=== PATIENT | male | born 1955 | race American Indian/Alaskan Native ===

== ENCOUNTER 2018-12-23 00:56 | Emergency (ER) | payer MEDICAID ==
--- NOTE | 2018-12-23 03:34 | Emergency Department Report ---
ED Lower Extremity HPI - General Chief Complaint: Extremity Injury, Lower Stated Complaint: B LEG PAIN FOR 2 DAYS Time Seen by Provider: 12/23/18 02:54 Source: patient Mode of arrival: Ambulatory Limitations: No Limitations - History of Present Illness MD Complaint: knee injury -: Gradual, month(s) Injury: Knee: Right Severity: moderate Improves With: nothing Worsens With: movement, palpation Associated Symptoms: denies: snap/pop sensation, swelling, numbness, tingling, unable to bear weight, able to partially bear weight - Related Data Previous Rx's Medication Instructions Recorded Last Taken Type Meloxicam [Mobic] 15 mg PO DAILY #14 tablet 12/23/18 Unknown Rx Allergies Allergy/AdvReac Type Severity Reaction Status Date / Time Penicillins Allergy Hives Verified 12/23/18 00:59 ED Review of Systems ROS: Stated complaint: B LEG PAIN FOR 2 DAYS Other details as noted in HPI Comment: All other systems reviewed and negative ED Past Medical Hx - Past Medical History Previous Medical History?: Yes Hx Hypertension: Yes Hx HIV: Yes - Surgical History Past Surgical History?: Yes Additional Surgical History: Shunt placement - Social History Smoking Status: Current Every Day Smoker Substance Use Type: None - Medications Home Medications: Home Medications Medication Instructions Recorded Confirmed Last Taken Type Meloxicam [Mobic] 15 mg PO DAILY #14 tablet 12/23/18 Unknown Rx ED Physical Exam - General Limitations: No Limitations General appearance: alert, in no apparent distress - Head Head exam: Present: atraumatic, normocephalic - Eye Eye exam: Present: normal appearance - ENT ENT exam: Present: mucous membranes moist - Neck Neck exam: Present: normal inspection - Respiratory Respiratory exam: Present: normal lung sounds bilaterally. Absent: respiratory distress - Cardiovascular Cardiovascular Exam: Present: regular rate, normal rhythm. Absent: systolic murmur, diastolic murmur, rubs, gallop - GI/Abdominal GI/Abdominal exam: Present: soft, normal bowel sounds - Rectal Rectal exam: Present: deferred - Extremities Exam Extremities exam: Present: normal inspection - Expanded Lower Extremity Exam Right Knee exam: Present: tenderness (there is tenderness to palpation and some crepitus with range of motion.). Absent: abrasion, laceration, ecchymosis, deformity - Back Exam Back exam: Present: normal inspection - Neurological Exam Neurological exam: Present: alert, oriented X3 - Psychiatric Psychiatric exam: Present: normal affect, normal mood - Skin Skin exam: Present: warm, dry, intact, normal color. Absent: rash ED Course Vital Signs 12/23/18 12/23/18 00:59 04:28 Temperature 98.0 F Pulse Rate 77 Respiratory 20 18 Rate Blood Pressure 136/82 O2 Sat by Pulse 97 Oximetry ED Lower Extremity MDM - Medical Decision Making 63-year-old male is was department with chronic right knee pain with no known trauma associated. Reports some mild swelling so there is some some crepitus or joint with range of motion examination yielded mild swelling and some crepitus on examination there is no deformity. No popliteal mass and pulses are 2+. No evidence of any DVTs noted. His x-ray show moderate erosion of the joints joint space. No with some osteophytes no fracture seen on or on the x-ray. The plan is to cover this Japanese for his his arthralgia having a follow-up with orthopedics for definitive management of this chronic issue. Critical care attestation.: If time is entered above; I have spent that time in minutes in the direct care of this critically ill patient, excluding procedure time. ED Disposition Clinical Impression: Arthralgia, Knee pain, right Disposition: DC-01 TO HOME OR SELFCARE Is pt being admited?: No Does the pt Need Aspirin: No Condition: Stable Instructions: Arthralgia (ED) Prescriptions: Meloxicam [Mobic] 15 mg PO DAILY #14 tablet Referrals: SALLIE CARTER MD [Primary Care Provider] - 3-5 Days LUISANA CALLOWAY MD [Staff Physician] - 3-5 Days
[2018-12-23] MEDS ORDERED: KETOROLAC 60 MG/2 ML INJ IM STA (04:21)
--- NOTE | 2018-12-23 05:37 | XRay Report ---
RIGHT KNEE 4 VIEWS INDICATION / CLINICAL INFORMATION: right knee pain COMPARISON: None available. FINDINGS: BONES / JOINT(S): No acute fracture or subluxation. 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 SOFT TISSUES: No significant abnormality. ADDITIONAL FINDINGS: None. Signer Name: Michael Simpson MD Signed: 12/23/2018 5:33 AM Workstation Name: [id number]
[2018-12-23 05:43] VITALS: BP 125/83
== END 2018-12-23 05:42 | disposition home or self-care (01) ==
LOC: ED 00:56
DX: M25.561 Pain in right knee (principal); G89.29 Other chronic pain; I10 Essential (primary) hypertension; Z21 Asymptomatic human immunodeficiency virus [HIV] infection status; F17.200 Nicotine dependence, unspecified, uncomplicated; Z88.0 Allergy status to penicillin; Z79.899 Other long term (current) drug therapy
CPT/HCPCS: 73562; 96372; 99283; J1885

== ENCOUNTER 2020-06-22 22:48 | Emergency (ER) | payer MEDICAID ==
[2020-06-22 23:55] VITALS: BP 126/73
--- NOTE | 2020-06-23 01:22 | Emergency Department Report ---
ED General Adult HPI - General Chief complaint: Abdominal Pain Stated complaint: SEVERE CONSTIPATION/GENERAL PAIN Source: patient Mode of arrival: Ambulatory Limitations: No Limitations - History of Present Illness Initial comments: Chief complaint: "I have not been able to go in 3 days." HPI: This is a 64-year-old male with history of HIV, hypertension who presents with constipation for 3 days. He denies fever, vomiting, abdominal pain. He has had moderate appetite. -: Gradual, days(s) (3 days constipation) Severity scale (0 -10): 0 Quality: other (Denies pain) Consistency: constant Improves with: none Worsens with: none Treatments Prior to Arrival: other (Laxative no relief) - Related Data Previous Rx's Medication Instructions Recorded Last Taken Type Meloxicam [Mobic] 15 mg PO DAILY #14 tablet 12/23/18 Unknown Rx Magnesium Citrate [Citrate of 300 ml PO NOW #1 bottle 06/23/20 Unknown Rx Magnesia] Allergies Allergy/AdvReac Type Severity Reaction Status Date / Time Penicillins Allergy Hives Verified 12/23/18 00:59 ED Review of Systems ROS: Stated complaint: SEVERE CONSTIPATION/GENERAL PAIN Other details as noted in HPI Comment: All other systems reviewed and negative Constitutional: denies: fever, malaise Respiratory: denies: cough, shortness of breath Gastrointestinal: constipation. denies: abdominal pain, nausea, vomiting ED Past Medical Hx - Past Medical History Previous Medical History?: Yes Hx Hypertension: Yes Hx HIV: Yes - Surgical History Past Surgical History?: Yes Additional Surgical History: Shunt placement - Social History Smoking Status: Current Every Day Smoker Substance Use Type: Alcohol, Marijuana - Medications Home Medications: Home Medications Medication Instructions Recorded Confirmed Last Taken Type Meloxicam [Mobic] 15 mg PO DAILY #14 tablet 12/23/18 Unknown Rx Magnesium Citrate [Citrate of 300 ml PO NOW #1 bottle 06/23/20 Unknown Rx Magnesia] ED Physical Exam - General Limitations: No Limitations General appearance: alert, in no apparent distress - Head Head exam: Present: atraumatic, normocephalic - Eye Eye exam: Present: normal appearance - ENT ENT exam: Present: mucous membranes moist - Neck Neck exam: Present: normal inspection, full ROM - Respiratory Respiratory exam: Present: normal lung sounds bilaterally. Absent: respiratory distress, wheezes, rales, rhonchi - Cardiovascular Cardiovascular Exam: Present: regular rate, normal rhythm, normal heart sounds. Absent: systolic murmur, diastolic murmur, rubs, gallop - GI/Abdominal GI/Abdominal exam: Present: soft, normal bowel sounds. Absent: distended, tenderness, guarding, rebound - Rectal Rectal exam: Present: deferred - Extremities Exam Extremities exam: Present: normal inspection - Neurological Exam Neurological exam: Present: alert, oriented X3 - Psychiatric Psychiatric exam: Present: normal affect, normal mood - Skin Skin exam: Present: warm, dry, intact, normal color. Absent: rash ED Course Vital Signs 06/22/20 23:52 Temperature 97.2 F L Pulse Rate 72 Respiratory 18 Rate Blood Pressure 126/73 O2 Sat by Pulse 98 Oximetry ED Medical Decision Making - Medical Decision Making Constipation without pain no vomiting: Prescribed magnesium citrate. Discharged home. Critical care attestation.: If time is entered above; I have spent that time in minutes in the direct care of this critically ill patient, excluding procedure time. ED Disposition Clinical Impression: Constipation Disposition: DC-01 TO HOME OR SELFCARE Is pt being admited?: No Does the pt Need Aspirin: No Condition: Stable Instructions: Constipation, Adult, [id number] Prescriptions: Magnesium Citrate [Citrate of Magnesia] 300 ml PO NOW #1 bottle Referrals: ROCCO RINCON MD [Staff Physician] - 3-5 Days
== END 2020-06-23 02:16 | disposition home or self-care (01) ==
LOC: ED 22:48
DX: K59.00 Constipation, unspecified (principal); I10 Essential (primary) hypertension; F17.200 Nicotine dependence, unspecified, uncomplicated; F12.10 Cannabis abuse, uncomplicated; Z21 Asymptomatic human immunodeficiency virus [HIV] infection status; Z79.899 Other long term (current) drug therapy; Z88.0 Allergy status to penicillin
CPT/HCPCS: 99282